=== PATIENT | male | born 1990 | race Caucasian/White ===

== ENCOUNTER 2022-02-09 02:38 | Emergency (ER) | payer OTHER ==
[~2022-02-09] VITALS: Ht 182.9 cm; Wt 77.1 kg
[~2022-02-09 02:38] MED LIST: ACET500; HYDACE5 PO; PENVK250 PO
== END 2022-02-09 05:23 | disposition home or self-care (01) ==
LOC: ER 02:38
DX: H57.13 Ocular pain, bilateral (principal); H53.8 Other visual disturbances
CPT/HCPCS: A9270